=== PATIENT | male | born 1955 | race Caucasian/White ===

== ENCOUNTER 2023-10-02 21:37 | Outpatient (CLI) | payer MEDICARE, OTHER, SELFPAY | END 2023-10-02 21:38 | disposition home or self-care (01) | LOC: AMB 10-19 16:14 | PROVIDERS: Visit Provider Internal Medicine | DX: R06.09 Other forms of dyspnea (principal); I49.9 Cardiac arrhythmia, unspecified | CPT/HCPCS: A0425; A0427 ==